=== PATIENT | female | born 1975 | race Caucasian/White ===

== ENCOUNTER → 2020-11-28 15:39 | Outpatient (BNVA) | payer OTHER, SELFPAY | PROVIDERS: Family Provider Family Medicine; PCP Family Medicine Adult Medicine; Visit Provider Nurse Practitioner Family | DX: Z20.822 Contact with and (suspected) exposure to COVID-19 (principal) | CPT/HCPCS: 87635 ==

== ENCOUNTER 2021-12-14 14:42 | Emergency (ER) | payer OTHER, SELFPAY ==
[2021-12-14 15:23] VITALS: BP 151/95; PULSE 78; RESP 15; TEMP 36.7; O2SAT 99; BMI 30.7
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
--- NOTE | 2021-12-14 15:51 | XRR_ITS ---
PROCEDURE INFORMATION: Exam: XR Right Knee Exam date and time: 12/14/2021 3:54 PM Age: 46 years old Clinical indication: Injury or trauma; Other: Stepped in hole; Sprain or strain; Patella or knee; Right; Injury date: Today; Injury details: Patient tells me she stepped in a hole prior to her knee hurting. ; Additional info: Injury/medial pain TECHNIQUE: Imaging protocol: Radiologic exam of the Right knee. Views: 3 views. COMPARISON: No relevant prior studies available. FINDINGS: Bones/joints: Normal. Soft tissues: Normal. XR/XR knee RT 3V* [id number] IMPRESSION: No acute findings.
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
== END 2021-12-14 16:28 | disposition home or self-care (01) ==
PROVIDERS: Emergency Provider Physician Assistant; PCP Family Medicine Adult Medicine
DX: S89.91XA Unspecified injury of right lower leg, initial encounter (principal); F17.210 Nicotine dependence, cigarettes, uncomplicated; W18.42XA Slipping, tripping and stumbling without falling due to stepping into hole or opening, initial encounter
CPT/HCPCS: 73562; 99283; E0114

== ENCOUNTER 2022-08-29 13:05 | Emergency (ER) | payer SELFPAY ==
[2022-08-29 13:24] VITALS: BP 162/108; PULSE 94; RESP 16; TEMP 36.6; O2SAT 97; BMI 29.2
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
[2022-08-29 15:15] VITALS: RESP 15
[2022-08-29] MEDS: ondansetron 2 mg/ML SDV 2 mL 4 MG IM (15:15)
[2022-08-29] MEDS: morphine 4 mg/mL SDV 1 mL IM (15:15)
[2022-08-29] MEDS: neomycin-poly-bacitracin oint 28 gm 1 APPLIC TOPICAL (16:12)
--- NOTE | 2022-08-30 10:04 | DCPLANNER ---
Addendum entered by Terese Mcmillan 09/07/22 08:03: Patient had a follow up appointment scheduled with ENT - patient did attend appointment. Addendum entered by Terese Mcmillan 08/31/22 11:01: Patient has a followup appointment scheduled for Sunday, September 04, 2022 at 1:[address] Ferris at ENT. Original Note: assistant office manager had message to schedule a follow up appointment for patient with ENT. assistant office manager sent patients information to the front office staff at ENT. Patients information will be printed and reviewed. Clinic will call patient with appointment information.
== END 2022-08-29 16:08 | disposition home or self-care (01) ==
PROVIDERS: Emergency Provider Physician Assistant; PCP Family Medicine Adult Medicine
DX: M24.811 Other specific joint derangements of right shoulder, not elsewhere classified (principal); S02.2XXA Fracture of nasal bones, initial encounter for closed fracture; S05.12XA Contusion of eyeball and orbital tissues, left eye, initial encounter; Z87.820 Personal history of traumatic brain injury; F17.210 Nicotine dependence, cigarettes, uncomplicated; V29.99XA Rider (driver) (passenger) of other motorcycle injured in unspecified traffic accident, initial encounter
CPT/HCPCS: 70450; 70486; 72125; 73030; 96372; 99285; J2270; J2405

== ENCOUNTER 2023-02-12 11:25 | Emergency (ER) | payer OTHER, SELFPAY ==
[2023-02-12 11:37] VITALS: BP 190/123; PULSE 76; RESP 16; TEMP 36.6; O2SAT 97; BMI 31.2
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
--- NOTE | 2023-02-12 12:03 | CT_ITS ---
WS: [id number] CT ABDOMEN AND PELVIS NONCONTRAST HISTORY: Abdominal pain TECHNIQUE: Imaging performed through the abdomen and pelvis. Coronal and sagittal reformats are submi tted. All CT scans at [facility] use at least one of these dose optimization techniques: auto mated exposure control; mA and/or kV adjustment per patient size (includes targeted exams where dose is matched to clinical indication); or iterative reconstruction. DLP: 554.31 mGy.cm COMPARISON: 09/20/2016 Lower thorax: Lung bases are clear. Visualized heart is normal. No hiatal hernia. Liver: Liver is moderately enlarged with changes of hepatic steatosis. Gallbladder: Prior cholecystectomy. Pancreas: Normal size and attenuation. Normal pancreatic duct. No pancreatitis or mass. Spleen: Normal. Adrenal glands: Normal. No mass. Right kidney: Nonobstructing 2 mm calcification upper pole. Left kidney: Normal size kidney with no mass or hydronephrosis. Aorta: Mild atherosclerosis abdominal aorta with no aneurysm. No free fluid, intraperitoneal air or significant lymphadenopathy. GI tract: Normal noncontrast imaging of the stomach, small bowel and colon. No obstruction or wall th ickening. Normal appendix. Abdominal wall: Small umbilical hernia contains fat only. Pelvis: No free fluid in the pelvis. Uterus is midline. Lobulated LEFT adnexal cystic mass measures 4 .6 x 2.5 x 4.7 cm. No free fluid in the pelvis. Osseous structures: Unremarkable. IMPRESSION: 1. No acute abdominal or pelvic abnormalities. 2. Normal appendix. 3. Cystic mass in the LEFT adnexa measures 4.6 x 2.5 x 4.7 cm. Probably a cluster of functional cyst . This can be reevaluated by transvaginal pelvic ultrasound on a nonurgent basis. 4. Prior cholecystectomy. 5. Moderate hepatomegaly and hepatic steatosis. 6.
[2023-02-12 12:08] LABS: Basophils # 0.1 10^3/uL (0.0-0.1); Eosinophils # 0.2 10^3/uL (0.0-0.8); Eosinophils % 1.8 %; Hematocrit 47.5 % (36-47); Lymphocytes # 2.8 10^3/uL (0.8-4.8); Lymphocytes % 26.7 %; Mean Corpuscular HGB Conc 34.1 g/dL (30-55); Mean Corpuscular Hemoglobin 35.9 pg (27-33); Mean Corpuscular Volume 105.3 fl (85-98); Mean Platelet Volume 10.1 fL (7.4-10.4); Monocytes # 0.4 10^3/uL (0.2-0.9); Monocytes % 3.8 %; Neutrophils # 6.92 10^3/uL (1.8-7.7); Neutrophils % 66.3 %; Nucleated Red Blood Cells % 0 %; Platelet Count 229 10^3/cmm (157-399); Red Blood Count 4.51 10^6/uL (3.85-5.65); Red Cell Distribution Width 12.7 % (12.1-15.1); White Blood Count 10.43 10^3/uL (3.29-11.43)
[2023-02-12 12:15] VITALS: RESP 20; O2SAT 97
[2023-02-12] MEDS: morphine 4 mg/mL SDV 1 mL IVP (12:15)
[2023-02-12] MEDS: ondansetron 2 mg/ML SDV 2 mL 4 MG IVP (12:17)
[2023-02-12 12:19] VITALS: BP 195/105; PULSE 80; RESP 20; O2SAT 97
[2023-02-12 12:23] LABS: Alanine Aminotransferase 29 U/L (0-33); Albumin Level 4.5 g/dL (3.5-5.2); Alkaline Phosphatase 94 U/L (35-105); Aspartate Amino Transferase 17 U/L (0-32); Blood Urea Nitrogen 10 mg/dL (6-20); Calcium 8.8 mg/dL (8.5-10.5); Carbon Dioxide 24 mmol/L (22-29); Chloride 104 mmol/L (98-107); Globulin 2.8 g/dL (1.3-4.6); Glomerular Filtration Rate 90.1 mL/min (90-130); Glucose 90 mg/dL (65-115); Osmolality Calculated 289 mOsm/kg (285-295); Sodium 140 mmol/L (136-145); Total Bilirubin 0.3 mg/dL (0.15-1.2); Total Protein 7.3 g/dL (6.6-8.7)
[2023-02-12] MEDS: sodium chloride 0.9% 1,000 ML 999 ML IV (12:43)
--- NOTE | 2023-02-12 12:50 | PC.PHAR ---
pt states she takes care of her own medications-pt states she filled clonidine 0.1mg hs filled 10/16/22 30d/s pt states never took- pt states she is only taking the medications entered prn
[2023-02-12 13:08] LABS: Anion Gap 15.9 (5-19); Potassium 3.9 mmol/L (3.5-5.1)
[2023-02-12 13:26] LABS: Add Urine Microscopic? YES; Bilirubin Urine Neg (Negative); Blood Urine Neg (Negative); Glucose Urine UA Norm (Normal); Ketones Urine 1+ (Negative); Leukocyte Esterase Urine Negative (Negative); Nitrate Urine Negative (Negative); Protein Urine Neg (Negative); Urine Appearance SL Hazy (CLEAR); Urine Color Yellow (Yellow); Urobilinogen Urine 1 mg/dL (Negative); pH Urine 5 (5-7)
[2023-02-12 13:42] LABS: RBC Urine 0-4 /hpf (0-2)
[2023-02-12 13:43] LABS: Hyaline Casts Urine RARE /lpf; Mucus Urine 2+ /hpf
[2023-02-12 13:44] LABS: Add Urine Culture? No
[2023-02-12 15:11] VITALS: PULSE 77; O2SAT 95
== END 2023-02-12 15:13 | disposition home or self-care (01) ==
PROVIDERS: Emergency Provider Family Medicine; PCP Family Medicine Adult Medicine
DX: K42.9 Umbilical hernia without obstruction or gangrene (principal); F17.210 Nicotine dependence, cigarettes, uncomplicated
CPT/HCPCS: 74176; 80053; 81001; 85025; 96361; 96374; 96375; 99285; J2270; J2405; J7030

== ENCOUNTER → 2023-10-04 09:31 | Outpatient (BNVA) | payer OTHER, SELFPAY | PROVIDERS: PCP Family Medicine Adult Medicine; Visit Provider Student in an Organized Health Care Education/Training Program | DX: M25.562 Pain in left knee (principal); M71.22 Synovial cyst of popliteal space [Baker], left knee; S83.207A Unspecified tear of unspecified meniscus, current injury, left knee, initial encounter; S83.8X2A Sprain of other specified parts of left knee, initial encounter; X58.XXXA Exposure to other specified factors, initial encounter | CPT/HCPCS: 73560; 73565 ==